=== PATIENT | male | born 1965 | race Caucasian/White ===

== ENCOUNTER → 2020-12-27 | Outpatient (REF) ==
--- NOTE | 2020-12-28 03:30 | REPPI ---
INDICATION: DISABILITY DETERMINATION COMPARISON: None. TECHNIQUE: AP, lateral, coned-down views of the lumbar spine. FINDINGS: Three views of the lumbosacral spine demonstrate satisfactory alignment and lordosis without acute fracture / compression injury or subluxation. Endplate sclerosis, disc space narrowing, and marginal osteophytosis with mild facet hypertrophy noted at L5-S1. Similar degenerative changes are also appreciated at L2-3 and to a lesser extent L1-2. IMPRESSION: 1. No acute fracture / compression injury or subluxation. 2. Moderate multilevel degenerative spondylosis. <Electronically signed by Boris Montilla > 12/28/20 0201
== END ==
LOC: M PLAIMG 10:48
PROVIDERS: ATTEND Internal Medicine
DX: M25.78 Osteophyte, vertebrae (principal); M51.37 Other intervertebral disc degeneration, lumbosacral region